=== PATIENT | female | born 1960 | race Caucasian/White ===

== ENCOUNTER 2018-07-02 13:36 | Day surgery (SDC) | payer MEDICARE ==
[~2018-07-02 13:36] MED LIST: Ondansetron PF 4 MG/2 ML Vial ONE; PHENYLEPHRINE-NS 100 MCG/ML 10 ML SYRINGE ONE; PROPOFOL 200 MG/20 ML VIAL ONE
[2018-07-02] MEDS ORDERED: Fentanyl 100 MCG/2 ML VIAL ONE (14:18)
[2018-07-02] MEDS ORDERED: manNITOL 20% 500 ML ONE (14:19)
[2018-07-02] MEDS ORDERED: Propofol 500 MG/50 ML VIAL ONE (14:19)
[2018-07-02] MEDS ORDERED: Midazolam HCl 2 mg/2 ml Vial ONE (14:20)
[2018-07-02] MEDS ORDERED: Albuterol Sulfate HFA (OR ONLY) ONE (14:36)
--- NOTE | 2018-07-02 18:46 | RAD ---
LUMBAR SPINE TWO VIEWS: 07/02/18 HISTORY: Dorsal column stimulator placement. These are C-arm films which show dorsal column stimulator being placed at what is labeled as the T7 v ertebral body level. IMPRESSION: Dorsal column stimulator placement. POS: ALEXANDRA
--- NOTE | 2018-07-03 01:15 | OP ---
DATE OF PROCEDURE: 07/02/2018 PREOPERATIVE DIAGNOSES: 1. Post-laminectomy syndrome. 2. Chronic pain syndrome. 3. Lumbar radiculopathy. POSTOPERATIVE DIAGNOSES: 1. Post-laminectomy syndrome. 2. Chronic pain syndrome. 3. Lumbar radiculopathy. PROCEDURES PERFORMED: 1. Spinal cord stimulator lead revision x2. 2. Fluoroscopy. 3. Programming. SPECIMENS REMOVED: 2 leads, spinal cord stimulator intact, anchors x2. ESTIMATED BLOOD LOSS: 5. COMPLICATIONS: No apparent complications noted at this time. SUMMARY OF PROCEDURE: The patient was taken to the procedure room and placed prone on the procedure room table. A time-out was performed. Using ChloraPrep, we prepped the back. Sterile drapes were applied. We used fluoroscopy to identify the previous leads. We anesthestized the skin with lidocaine and Marcaine mix. We made an incision through the previous incision over the leads and dissected this down to fascia. We located the anchor on the left and blunt dissected this. We removed the 2 sutures that were holding the anchor intact and removed the lead. We then made an incision at the battery site after anesthetizing with local anesthetic. We blunt dissected down to the battery pocket. The battery was removed. We loosened the left-sided lead with the torque wrench and pulled the leads through and removed the lead intact. The supplied 14-gauge Tuohy needle was then inserted through the incision site and advanced to the T12-L1 interspace in a left-sided paramedian technique. Once engaged the ligaments, we used loss of resistance to air to achieve access to the epidural space. Aspiration was negative for heme or CSF. A lead was then threaded in the midline dorsal epidural space up to the top of T7. Stimulation was performed and the patient felt paresthesia in all pain areas on the left side. We then stimulated the right-sided lead; however, the patient did not experience paresthesia on the right side. Therefore, it was decided to revise the right-sided lead. This was removed in the exact same fashion as described above. For the left-sided lead, we inserted the 14-gauge Tuohy after the lead was removed in the same fashion, paramedian technique to the same interspinous level. We gained access to the epidural space. After negative for heme or CSF. We then threaded a contact lead up the midline dorsal epidural space to the bottom of T7. Stimulation was performed and the patient experienced paresthesia in all pain areas. Sandpoint were then removed, taking care not to move the leads and the anchor was placed over each of the leads and clicked to lock the anchor in place. These were then sutured down to fascia using 2-0 silk suture. A tunnelling device was used to make a tunnel between the lead incision site and the battery pocket. These were then attached to the battery and torqued down. Impedances were checked, which were all good. The battery was placed inside the pocket. Both incisions were approximated using 2-0 Vicryl suture in simple interrupted fashion for the fascial layer and then Monocryl 4-0 and a subcuticular stitch for the skin. This was further occluded using Dermabond. No other dressing was applied. The patient was taken to the PACU under stable conditions with no apparent complications noted at this time period. Job ID: [id number]
--- NOTE | 2018-07-03 22:35 | EKG ---
Test Reason : PREOP Blood Pressure : / mmHG Vent. Rate : 068 BPM Atrial Rate : 068 BPM P-R Int : 174 ms QRS Dur : 140 ms QT Int : 484 ms P-R-T Axes : 039 024 073 degrees QTc Int : 514 ms Normal sinus rhythm Left bundle branch block Abnormal ECG No previous ECGs available Confirmed by HUNG MCADAMS, DR. Muñoz ([id number]) on 07/03/2018 10:35:17 PM Referred By: MONIE Confirmed By:DR. Wanda PERSAUD MD
== END 2018-07-02 18:35 | disposition home or self-care (01) ==
LOC: SDC 13:36
PROVIDERS: ATTEND Specialist
PROC: 00WU3MZ Revision of Neurostimulator Lead in Spinal Canal, Percutaneous Approach (ICD-10-PCS; principal; 2018-07-02)
DX: M96.1 Postlaminectomy syndrome, not elsewhere classified (principal); G89.4 Chronic pain syndrome; M51.16 Intervertebral disc disorders with radiculopathy, lumbar region; F31.9 Bipolar disorder, unspecified; I10 Essential (primary) hypertension; E11.9 Type 2 diabetes mellitus without complications; F17.210 Nicotine dependence, cigarettes, uncomplicated; M48.061 Spinal stenosis, lumbar region without neurogenic claudication; Z79.84 Long term (current) use of oral hypoglycemic drugs; Z79.899 Other long term (current) drug therapy; Z88.5 Allergy status to narcotic agent; Z88.8 Allergy status to other drugs, medicaments and biological substances; Z98.1 Arthrodesis status; Z98.890 Other specified postprocedural states
CPT/HCPCS: 72100; 93005; 93010; J2250; J2405; J2704; J3010; J7799